=== PATIENT | female | born 1955 | race Caucasian/White ===

== ENCOUNTER 2023-12-08 10:49 | Observation (INO) ==
[2023-12-08] MEDS: NOZIN NASAL SANITIZER TP ONE (11:14)
[2023-12-08] MEDS: LR 1,000 ML IV 1,000 ML IV ONE (11:14)
[2023-12-08] MEDS: ANCEF VIAL 1 GRAM ONE (11:47)
[2023-12-08] MEDS: NS 100 ML IV 100 ML ONE (11:47)
[2023-12-08] MEDS: FENTANYL VIAL INJ 100 mcg ONE (11:59)
[2023-12-08] MEDS: VERSED ONE (11:59)
[2023-12-08] MEDS: DIPRIVAN VIAL 40 ML ONE (12:01)
[2023-12-08] MEDS: VISIPAQUE 100 ML ONE (12:17)
[2023-12-08] MEDS: HEPARIN SODIUM IN D5W 75,000 UNITS/1,500 ML BAG ONE (12:17)
[2023-12-08] MEDS: VISIPAQUE 50 ML ONE ×2 (12:17→13:58)
[2023-12-08] MEDS: MARCAINE 0.5% ONE (12:17)
[2023-12-08] MEDS: HEPARIN SODIUM INJ 5000 UNITS ONE ×2 (12:18→13:22)
[2023-12-08] MEDS: ROBINUL ONE (12:21)
[2023-12-08] MEDS: NEO-SYNEPHRINE INJ ONE (12:25)
[2023-12-08] MEDS: NS 500 ML IV 500 ML IV ONE (12:32)
[2023-12-08] MEDS: DIPRIVAN VIAL 20 ML ONE (13:38)
--- NOTE | 2023-12-08 14:32 | OR.IMMED ---
IMMEDIATE POST-OP NOTE Immediate Post-Op Note Date of surgery/procedure: 12/08/23 Pre-Op Diagnosis: Critical scheme of left leg Post-Op Diagnosis: same Procedure: aortogram, arteriogram left leg, atherectomy and Drug coated stenting of the left distal superficial femoral artery and proximal popliteal artery, atherectomy and drug coated balloon angioplasty of the proximal left superficial femoral artery and angioplasty of the left posterior tibial artery Description of Procedure: see dictation Surgeon/First Aid Officer: Tim Findings: stricture of distal left posterior tibial artery, stenosis proximal left anterior artery, normal left peroneal artery, severe distal aortic disease, diseased proximal left superficial artery, complete total occlusion of the distal left superficial femoral artery with reconstitution at the adductor canal Estimated Blood Loss: 100cc Complications: none Discharge Progress Notes: patient taken back to Same Day Surgery, will discharge home and ready. Resume usual activity tomorrow. Follow up 1 week. Resume all medications including as pirin. Begin Xarelto 2.5 milligrams BID
[2023-12-08] MEDS: NS 1,000 ML IV 0 ML ONE (15:19)
[2023-12-08] MEDS: CATAPRES TAB 0.2 MG ONE (15:25)
[2023-12-08] MEDS: NORVASC TAB 5 MG ONE (16:17)
[2023-12-08] MEDS ORDERED: COREG TAB 12.5 MG ONE (16:19)
[2023-12-08] MEDS: COREG TAB 12.5 MG PO SCH (16:30)
[2023-12-08] MEDS: PERCOCET TAB 5/325 MG PO PRN (17:05)
[2023-12-08 17:58] VITALS: BMI 24.8
[2023-12-08] MEDS: LR 1,000 ML IV 1,000 ML IV SCH (18:12)
[2023-12-08] MEDS ORDERED: LR 1,000 ML IV 1,000 ML IV ONE (18:12)
--- NOTE | 2023-12-08 23:48 | NOTE.SOAP ---
Soap Note Note for Day of Date of Exam: 12/08/23 Subjective Data Subjective Data: Patient had left leg arterial revascularization today and post op had BP> 190/105. Patient had recent CABG and pre -op was on Coreg ,amlodipine and Losartan for hypertension. Since CABG has only been on Coreg 12.5. BID for BP control. With spike in BP had bleeding from needle sticks in right groin and left foot. Admitted to CCU and given Coreg and Amlodipine with good result ( 107/60) Objective Data Pulse Rate: 55 Respiratory Rate: 21 Blood Pressure: 107/60 O2 Sat by Pulse Oximetry: 98 Objective Data: Bleeding stopped , left foot warm Assessment Assessment: HYpertension post procedure Plan Plan: bserve and probably d/c in AM
[2023-12-09 04:47] LABS: HEMOGLOBIN 11.2 g/dL (12.0-16.0); MEAN CORPUSCULAR HEMOGLOBIN 29.5 pg (27.0-34.0); MEAN CORPUSCULAR HGB CONC 34.2 g/dL (33.0-35.0); MEAN CORPUSCULAR VOLUME 86.2 fL (80.0-100.0)
[2023-12-09 04:57] LABS: ALANINE AMINOTRANSFERASE 12 Units/L (12-78); ALBUMIN 3.1 g/dL (3.4-5.0); ALKALINE PHOSPHATASE 53 Units/L (46-116); ASPARTATE AMINO TRANSFERASE 19 Units/L (15-37); BLOOD UREA NITROGEN 12 mg/dL (7-18); CALCIUM 8.7 mg/dL (8.5-10.1); CHLORIDE 106 mmol/L (98-107); COR CA(FOR HYPOALB) 9.4 mg/dL (8.5-10.1); CREATININE 0.74 mg/dL (0.55-1.02); GLUCOSE 99 mg/dL (65-99); SODIUM 143 mmol/L (136-145); TOTAL PROTEIN 6.3 g/dL (6.4-8.2); eGFR NON BLACK RACES > 60 (>60)
[2023-12-09 05:06] LABS: BASOPHILS % (AUTO) 0.2 % (0.2-1.0); EOSINOPHILS # (AUTO) 0.2 x10^3/uL (0.0-0.2); EOSINOPHILS % (AUTO) 1.9 % (0.9-2.9); HEMATOCRIT 32.6 % (36.0-47.0); LYMPHOCYTES # (AUTO) 2.5 X10^3/uL (1.3-2.9); LYMPHOCYTES % (AUTO) 27.9 % (21.0-51.0); MEAN PLATELET VOLUME 9.9 fL (7.4-11.0); MONOCYTES # (AUTO) 0.7 x10^3/uL (0.3-0.8); MONOCYTES % (AUTO) 8.1 % (0.0-13.0); NEUTROPHILS # (AUTO) 5.5 x10^3/uL (2.2-4.8); NEUTROPHILS % (AUTO) 61.9 % (42.0-75.0); PLATELET COUNT 103 X10^3/uL (150.0-450.0); RED BLOOD COUNT 3.78 X10^6/uL (3.5-5.4); RED CELL DISTRIBUTION WIDTH 17.3 % (11.6-16.5)
[2023-12-09 05:08] LABS: POTASSIUM 5.3 mmol/L (3.5-5.1)
[2023-12-09 08:07] VITALS: TEMP 97.6
[2023-12-09] MEDS: PROTONIX TAB 40 MG PO SCH (08:13)
[2023-12-09] MEDS: NORVASC TAB 10 MG PO SCH (08:13)
[2023-12-09] MEDS: ASPIRIN EC 81 MG PO SCH (08:13)
--- NOTE | 2023-12-09 10:20 | W.DIS.FURT ---
Summary of Discharge Discharge Summary of Date Date of Exam: 12/09/23 Admission Date Date of Admission: 12/08/23 Admission Diagnosis Hospital Course: 68 year old female who had peripheral re-vascularization of the left leg to include atherectomy and drug-coated balloon angioplasty of the proximal left superficial femoral artery, atherectomy and Drug coated stenting of the distal left superficial femoral and angioplasty of the left posterior tibial artery. We had planned to do this as an outpatient however blood pressure was in excess of 190 mm of mercury systolic and 105 mm of mercury diastolic. Recently she had a coronary artery bypass grafting and they stopped all the blood pressure medicines except for her Coreg. She was admitted and treated with Coreg 12.5 milligrams BID and amlodipine 10 daily and her blood pressure is within the normal limits now, most recently was 130/60 prior to discharge. Will be discharged today on her usual home l medications with the addition of the amlodipine 10 mg daily and I will see her in the office in 1 week. Vital Signs: Vital Signs (72 hours) 12/08/23 23:48 12/08/23 11:28 12/08/23 11:28 Temperature 97.5 F L Pulse Rate 55 L 104 H 104 H Pulse Rate [Bilateral Radial] Respiratory Rate 21 20 Blood Pressure 107/60 186/95 Blood Pressure [Right Arm] O2 Sat by Pulse Oximetry 98 99 Oxygen Delivery Method Room Air Oxygen Flow Rate FIO2% 12/08/23 14:25 12/08/23 14:16 12/08/23 14:36 Temperature Pulse Rate 59 L 60 58 L Pulse Rate [Bilateral Radial] Respiratory Rate 17 17 18 Blood Pressure 150/80 150/80 154/88 Blood Pressure [Right Arm] O2 Sat by Pulse Oximetry 95 Oxygen Delivery Method Room Air Oxygen Flow Rate FIO2% 12/08/23 14:30 12/08/23 14:45 12/08/23 15:01 Temperature Pulse Rate 58 L 56 L 57 L Pulse Rate [Bilateral Radial] Respiratory Rate 18 18 20 Blood Pressure 154/88 167/89 196/95 Blood Pressure [Right Arm] O2 Sat by Pulse Oximetry 95 99 Oxygen Delivery Method Room Air Room Air Oxygen Flow Rate FIO2% 12/08/23 14:55 12/08/23 15:11 12/08/23 17:05 Temperature Pulse Rate 57 L 50 L Pulse Rate [Bilateral Radial] Respiratory Rate 18 18 18 Blood Pressure 196/95 193/97 Blood Pressure [Right Arm] O2 Sat by Pulse Oximetry 97 Oxygen Delivery Method Room Air Oxygen Flow Rate FIO2% 12/08/23 15:05 12/08/23 15:15 12/08/23 15:25 Temperature Pulse Rate 54 L 50 L 53 L Pulse Rate [Bilateral Radial] Respiratory Rate 18 18 18 Blood Pressure 193/97 202/97 201/104 Blood Pressure [Right Arm] O2 Sat by Pulse Oximetry 99 100 100 Oxygen Delivery Method Room Air Room Air Room Air Oxygen Flow Rate FIO2% 12/08/23 15:35 12/08/23 15:45 12/08/23 15:55 Temperature Pulse Rate 53 L 57 L 56 L Pulse Rate [Bilateral Radial] Respiratory Rate 18 18 18 Blood Pressure 169/93 191/108 210/113 Blood Pressure [Right Arm] O2 Sat by Pulse Oximetry 100 100 99 Oxygen Delivery Method Room Air Room Air Room Air Oxygen Flow Rate FIO2% 12/08/23 16:05 12/08/23 16:15 12/08/23 16:25 Temperature Pulse Rate 53 L 56 L 55 L Pulse Rate [Bilateral Radial] Respiratory Rate 18 18 18 Blood Pressure 202/113 185/108 185/104 Blood Pressure [Right Arm] O2 Sat by Pulse Oximetry 99 99 99 Oxygen Delivery Method Room Air Room Air Room Air Oxygen Flow Rate FIO2% 12/08/23 16:35 12/08/23 16:45 12/08/23 16:55 Temperature Pulse Rate 54 L 59 L 58 L Pulse Rate [Bilateral Radial] Respiratory Rate 18 18 18 Blood Pressure 150/88 167/95 167/92 Blood Pressure [Right Arm] O2 Sat by Pulse Oximetry 99 99 99 Oxygen Delivery Method Room Air Room Air Room Air Oxygen Flow Rate FIO2% 12/08/23 17:05 12/08/23 17:20 12/08/23 17:20 Temperature 97.6 F Pulse Rate 58 L Pulse Rate [Bilateral Radial] 55 L Respiratory Rate 18 15 Blood Pressure 148/89 Blood Pressure [Right Arm] 154/76 O2 Sat by Pulse Oximetry 99 97 Oxygen Delivery Method Room Air Room Air Room Air Oxygen Flow Rate FIO2% 12/08/23 17:21 12/08/23 17:22 12/08/23 17:22 Temperature Pulse Rate 56 L 55 L Pulse Rate [Bilateral Radial] Respiratory Rate 17 15 Blood Pressure 154/76 Blood Pressure [Right Arm] O2 Sat by Pulse Oximetry Oxygen Delivery Method Oxygen Flow Rate FIO2% 12/08/23 17:30 12/08/23 17:45 12/08/23 18:11 Temperature Pulse Rate 58 L 59 L Pulse Rate [Bilateral Radial] Respiratory Rate 14 12 Blood Pressure 90/62 Blood Pressure [Right Arm] O2 Sat by Pulse Oximetry 95 93 L Oxygen Delivery Method Oxygen Flow Rate FIO2% 12/08/23 18:00 12/08/23 18:05 12/08/23 18:06 Temperature Pulse Rate 60 57 L Pulse Rate [Bilateral Radial] Respiratory Rate 29 H 19 Blood Pressure 85/56 Blood Pressure [Right Arm] O2 Sat by Pulse Oximetry 97 91 L Oxygen Delivery Method Oxygen Flow Rate FIO2% 12/08/23 18:08 12/08/23 18:08 12/08/23 18:13 Temperature Pulse Rate 57 L Pulse Rate [Bilateral Radial] Respiratory Rate 17 Blood Pressure 78/52 91/54 Blood Pressure [Right Arm] O2 Sat by Pulse Oximetry 94 L Oxygen Delivery Method Oxygen Flow Rate FIO2% 12/08/23 18:13 12/08/23 18:15 12/08/23 18:15 Temperature Pulse Rate 57 L 54 L Pulse Rate [Bilateral Radial] Respiratory Rate 16 13 Blood Pressure 95/57 Blood Pressure [Right Arm] O2 Sat by Pulse Oximetry 93 L 96 Oxygen Delivery Method Oxygen Flow Rate FIO2% 12/08/23 18:18 12/08/23 18:18 12/08/23 18:32 Temperature Pulse Rate 55 L Pulse Rate [Bilateral Radial] Respiratory Rate 16 Blood Pressure 100/63 Blood Pressure [Right Arm] O2 Sat by Pulse Oximetry 94 L Oxygen Delivery Method Nasal Cannula Oxygen Flow Rate 2 FIO2% 28 12/08/23 18:05 12/08/23 19:00 12/08/23 19:00 Temperature Pulse Rate 58 L Pulse Rate [Bilateral Radial] Respiratory Rate 18 21 Blood Pressure 86/53 Blood Pressure [Right Arm] O2 Sat by Pulse Oximetry 96 Oxygen Delivery Method Oxygen Flow Rate FIO2% 12/08/23 19:00 12/08/23 20:00 12/08/23 20:00 Temperature 98.1 F Pulse Rate 51 L Pulse Rate [Bilateral Radial] Respiratory Rate 19 Blood Pressure 104/57 Blood Pressure [Right Arm] O2 Sat by Pulse Oximetry 98 Oxygen Delivery Method Room Air Oxygen Flow Rate FIO2% 12/08/23 20:15 12/08/23 20:15 12/08/23 21:00 Temperature Pulse Rate 55 L Pulse Rate [Bilateral Radial] Respiratory Rate 17 Blood Pressure 103/64 96/66 Blood Pressure [Right Arm] O2 Sat by Pulse Oximetry 97 Oxygen Delivery Method Oxygen Flow Rate FIO2% 12/08/23 21:00 12/08/23 21:27 12/08/23 22:00 Temperature Pulse Rate 59 L 58 L Pulse Rate [Bilateral Radial] Respiratory Rate 18 20 Blood Pressure 105/62 Blood Pressure [Right Arm] O2 Sat by Pulse Oximetry 98 98 Oxygen Delivery Method Nasal Cannula Oxygen Flow Rate 2 FIO2% 28 12/08/23 22:00 12/08/23 22:00 12/08/23 22:25 Temperature Pulse Rate 55 L Pulse Rate [Bilateral Radial] Respiratory Rate 24 21 Blood Pressure 105/62 Blood Pressure [Right Arm] O2 Sat by Pulse Oximetry 98 Oxygen Delivery Method Oxygen Flow Rate FIO2% 12/08/23 22:23 12/08/23 22:23 12/08/23 23:00 Temperature Pulse Rate 58 L Pulse Rate [Bilateral Radial] Respiratory Rate 33 H Blood Pressure 126/71 107/60 Blood Pressure [Right Arm] O2 Sat by Pulse Oximetry 100 Oxygen Delivery Method Oxygen Flow Rate FIO2% 12/08/23 23:00 12/09/23 00:00 12/09/23 00:00 Temperature 97.7 F Pulse Rate 55 L 58 L Pulse Rate [Bilateral Radial] Respiratory Rate 21 22 Blood Pressure 102/56 Blood Pressure [Right Arm] O2 Sat by Pulse Oximetry 98 98 Oxygen Delivery Method Oxygen Flow Rate FIO2% 12/08/23 23:25 12/09/23 01:00 12/09/23 01:00 Temperature Pulse Rate 53 L Pulse Rate [Bilateral Radial] Respiratory Rate 19 18 Blood Pressure 106/56 Blood Pressure [Right Arm] O2 Sat by Pulse Oximetry 97 Oxygen Delivery Method Oxygen Flow Rate FIO2% 12/09/23 02:00 12/09/23 02:00 12/09/23 03:00 Temperature Pulse Rate 55 L 54 L Pulse Rate [Bilateral Radial] Respiratory Rate 16 17 Blood Pressure 111/56 Blood Pressure [Right Arm] O2 Sat by Pulse Oximetry 96 96 Oxygen Delivery Method Oxygen Flow Rate FIO2% 12/09/23 03:00 12/09/23 04:00 12/09/23 04:00 Temperature 98.0 F Pulse Rate 54 L Pulse Rate [Bilateral Radial] Respiratory Rate 18 Blood Pressure 99/58 109/57 Blood Pressure [Right Arm] O2 Sat by Pulse Oximetry 98 Oxygen Delivery Method Oxygen Flow Rate FIO2% 12/09/23 05:01 12/09/23 05:01 12/09/23 06:00 Temperature Pulse Rate 53 L 54 L Pulse Rate [Bilateral Radial] Respiratory Rate 19 20 Blood Pressure 129/59 Blood Pressure [Right Arm] O2 Sat by Pulse Oximetry 99 98 Oxygen Delivery Method Oxygen Flow Rate FIO2% 12/09/23 06:00 12/09/23 07:00 12/09/23 07:00 Temperature Pulse Rate 57 L Pulse Rate [Bilateral Radial] Respiratory Rate 19 Blood Pressure 123/61 119/60 Blood Pressure [Right Arm] O2 Sat by Pulse Oximetry 98 Oxygen Delivery Method Oxygen Flow Rate FIO2% 12/09/23 08:00 12/09/23 08:00 12/09/23 07:00 Temperature 97.6 F Pulse Rate 56 L Pulse Rate [Bilateral Radial] Respiratory Rate 15 Blood Pressure 97/61 Blood Pressure [Right Arm] O2 Sat by Pulse Oximetry 99 Oxygen Delivery Method Room Air Oxygen Flow Rate FIO2% 12/09/23 09:01 12/09/23 09:02 12/09/23 09:02 Temperature Pulse Rate 59 L 58 L Pulse Rate [Bilateral Radial] Respiratory Rate 22 17 Blood Pressure 132/64 Blood Pressure [Right Arm] O2 Sat by Pulse Oximetry 98 98 Oxygen Delivery Method Oxygen Flow Rate FIO2% 12/09/23 09:29 Temperature Pulse Rate Pulse Rate [Bilateral Radial] Respiratory Rate 17 Blood Pressure Blood Pressure [Right Arm] O2 Sat by Pulse Oximetry Oxygen Delivery Method Oxygen Flow Rate FIO2% Labs: Laboratory Last Values WBC 9.0 X10^3/uL (3.6-10.0) 12/09/23 04:12 RBC 3.78 X10^6/uL (3.5-5.4) 12/09/23 04:12 Hgb 11.2 g/dL (12.0-16.0) L 12/09/23 04:12 Hct 32.6 % (36.0-47.0) L 12/09/23 04:12 MCV 86.2 fL (80.0-100.0) 12/09/23 04:12 MCH 29.5 pg (27.0-34.0) 12/09/23 04:12 MCHC 34.2 g/dL (33.0-35.0) 12/09/23 04:12 RDW 17.3 % (11.6-16.5) H 12/09/23 04:12 Plt Count 103 X10^3/uL (150.0-450.0) L 12/09/23 04:12 MPV 9.9 fL (7.4-11.0) 12/09/23 04:12 Neut % (Auto) 61.9 % (42.0-75.0) 12/09/23 04:12 Lymph % (Auto) 27.9 % (21.0-51.0) 12/09/23 04:12 [place] % (Auto) 8.1 % (0.0-13.0) 12/09/23 04:12 Eos % (Auto) 1.9 % (0.9-2.9) 12/09/23 04:12 Baso % (Auto) 0.2 % (0.2-1.0) 12/09/23 04:12 Neut # (Auto) 5.5 x10^3/uL (2.2-4.8) H 12/09/23 04:12 Lymph # (Auto) 2.5 X10^3/uL (1.3-2.9) 12/09/23 04:12 [place] # (Auto) 0.7 x10^3/uL (0.3-0.8) 12/09/23 04:12 Eos # (Auto) 0.2 x10^3/uL (0.0-0.2) 12/09/23 04:12 Baso # (Auto) 0.0 X10^3/uL (0.0-0.1) 12/09/23 04:12 Absolute Nucleated RBC 0.0 /100WBC 12/09/23 04:12 Sodium 143 mmol/L (136-145) 12/09/23 04:12 Corrected Sodium TNP 12/09/23 04:12 Potassium 5.3 mmol/L (3.5-5.1) H 12/09/23 04:12 Chloride 106 mmol/L (98-107) 12/09/23 04:12 Carbon Dioxide 31.0 mmol/L (21-32) 12/09/23 04:12 BUN 12 mg/dL (7-18) 12/09/23 04:12 Creatinine 0.74 mg/dL (0.55-1.02) 12/09/23 04:12 Est GFR (MDRD) Af Amer > 60 (>60) 12/09/23 04:12 Est GFR (MDRD) Non-Af > 60 (>60) 12/09/23 04:12 Glucose 99 mg/dL (65-99) 12/09/23 04:12 Calcium 8.7 mg/dL (8.5-10.1) 12/09/23 04:12 Corrected Calcium 9.4 mg/dL (8.5-10.1) 12/09/23 04:12 Total Bilirubin 0.30 mg/dL (0.2-1.0) 12/09/23 04:12 AST 19 Units/L (15-37) 12/09/23 04:12 ALT 12 Units/L (12-78) 12/09/23 04:12 Alkaline Phosphatase 53 Units/L (46-116) 12/09/23 04:12 Total Protein 6.3 g/dL (6.4-8.2) L 12/09/23 04:12 Albumin 3.1 g/dL (3.4-5.0) L 12/09/23 04:12 Globulin 3.2 g/dL (2.5-4.5) 12/09/23 04:12 Albumin/Globulin Ratio 1.0 Ratio (1.1-2.1) L 12/09/23 04:12 Reason For Visit: AORTOGRAM Discharge Date Discharge Date: 12/09/23 Discharge Diagnosis Plan of Treatment: Continue with present treatment and follow up plan. Pt is to keep follow up appointment as instructed and take medications as ordered. Discharge Medications Discharge Medications: celecoxib [From Celebrex] Allergy (Verified 12/08/23 11:34) CONTINUE taking the following medications aspirin 81 mg tablet,delayed release 81 mg PO DAILY 12/08/23 [History] carvedilol 12.5 mg tablet 12.5 mg PO BID 12/08/23 [History] esomeprazole magnesium 20 mg capsule,delayed release 20 mg PO DAILY 12/08/23 [History] rosuvastatin 40 mg tablet 40 mg PO HS 12/08/23 [History] valacyclovir 1 gram tablet 1,000 mg PO DAILY 12/08/23 [History] amlodipine 10 mg po daily Discharge Disposition Assessment: as above , see hospital course Discharge Plan Discharge Plan Hospital Course: 68 year old female who had peripheral re-vascularization of the left leg to include atherectomy and drug-coated balloon angioplasty of the proximal left superficial femoral artery, atherectomy and Drug coated stenting of the distal left superficial femoral and angioplasty of the left posterior tibial a rtery. We had planned to do this as an outpatient however blood pressure was in excess of 190 mm of mercury systolic and 105 mm of mercury diastolic. Recently she had a coronary artery bypass grafting and they stopped all the blood pressure medicines except for her Coreg. She was admitted and treated with Coreg 12.5 milligrams BID and amlodipine 10 daily and her blood pressure is within the normal limits now, most recently was 130/60 prior to discharge. Will be discharged today on her usual home l medications with the addition of the amlodipine 10 mg daily and I will see her in the office in 1 week. Patient Disposition: 01 HOME, SELF-CARE Condition: Stable Health Concerns: Post Hospitalization: new medications and changes needed to prevent readmission or further decline. Pt educated and given instructions on all concerns. Care Plan Goals: resume walking, will need right leg arterial intervention in the near future Plan of Treatment: Continue with present treatment and follow up plan. Pt is to keep follow up appointment as instructed and take medications as ordered. Assessment: as above , see hospital course Prescription drug monitoring program results: PDMP was not reviewed Prescriptions: New amlodipine 10 mg tablet 10 mg PO QDAY Qty: 30 6RF Continued carvedilol 12.5 mg Tablet 12.5 mg PO BID Rx Instructions: must administer with a meal/food valacyclovir 1 gram Tablet 1,000 mg PO DAILY aspirin 81 mg Tablet,Delayed Release (Dr/Ec) 81 mg PO DAILY esomeprazole magnesium 20 mg Capsule,Delayed Release(Dr/Ec) 20 mg PO DAILY rosuvastatin 40 mg Tablet 40 mg PO HS Orders to Discharge Patient Discharge Orders: Discharge (Routine); Ordered 12/09/23 Ordered By: Herbert Dumont Follow ups/Referrals Follow ups/Referrals: ISAAC GOMES [Primary Care Provider] - PCP Instructions Instructions: Endovascular Therapy for Peripheral Vascular Disease, Care After, Monitored Anesthesia Care, Care After Activity Restrictions/Additional Instructions: POST OPERATIVE INSTRUCTIONS: (1) A RESPONSIBLE ADULT SHOULD REMAIN WITH YOU TODAY, YOU SHOULD BE ASSISTED TO THE BATHROOM FOR 6-8 HOURS. REST QUIETLY THE REMAINDER OF THE DAY. (2) DEEP BREATHING AND COUGHING EXERCISES FOR THE NEXT 6-8 HOURS. (3)SMOKE ONLY IF SOMEONE IS WITH YOU FOR THE NEXT 12 HOURS. (4) DIET TOLERATED, DRINK PLENTY OF WATER. (5) DO NOT DRIVE YOUR AUTOMOBILE OR OPERATE MACHINERY FOR 12-18 HOURS AFTER RECEIVING A GENERAL ANESTHETIC OR WHILE TAKING NARCOTIC PAIN MEDICATION. (6) SOME ANESTHETIC AGENTS AND MEDICATION TAKEN FOR PAIN MAY CAUSE NAUSEA. IF NAUSEA PERSISTS FOR SEVERAL HOURS AT HOME, CALL YOUR DOCTOR. (7) LIGHT ACTIVITIES. (8) OBSERVE OPERATIVE AREA FOR SIGNS OF INFECTION: REDNESS, SWELLING, FOUL ODOR, DRAINAGE, AND NOTIFY FOR ANY CONCERNS OR FEVER OVER 101.0. (9) KEEP OPERATIVE AREA CLEAN AND DRY. YOU MAY REMOVE DRESSING AFTER 24 HOURS AND SHOWER/BATH WITH ANTIBACTERIAL SOAP. (10) RESUME ALL PREVIOUS MEDICATIONS PRESCRIBED BY YOUR DOCTOR. (11) TAKE PAIN MEDICATIONS PRESCRIBED. (12) OBSERVE AFFECTED AREA FOR CIRCULATION, CHANGE OF COLOR, NUMBNESS OR TINGLING, COLDNESS, INCREASED PAIN, OR BLEEDING. FOR ANY COMPLICATIONS PLEASE CALL DR. DUOMNT @ PRIOR TO GOING TO EMERGENCY DEPARTMENT. (13) RESUME USUAL ACTIVITY. (14) RESUME ALL HOME MEDICATIONS INCLUDING ASPIRIN. (15) BEGIN XARELTO PRESCRIBED. FOLLOW UP WITH DR. DUMONT ON December AT 1130. Stand Alone Forms: Post Hospital Follow Up Care
[2023-12-09 11:07] VITALS: BP 98/61; PULSE 57; RESP 24; O2SAT 96
[2023-12-09] MEDS ORDERED: CRESTOR TAB 10 MG PO SCH (21:00)
--- NOTE | 2023-12-14 10:36 | DR.OPNOTE ---
OP NOTE Pre-Op Diagnosis: critical ischemia left leg Procedure: PROCEDURE: DIAGNOSTIC AORTOGRAM, DIAGNOSTIC ARTERIOGRAM LEFT LEG, ANGIOPLASTY LEFT POSTERIOR TIBIAL ARTERY, ATHERECTOMY AND DRUG COATED STENTING LEFT DISTAL SUPERFICIAL FEMORAQL ARTERY AND PROXIMAL POPLITEAL ARTERY , ATHWRECTOMY AND DRUG COATED BALLOON ANGIOPLASTY LEFT PROXIMAL SUPEREFICIAL FEMORAL ARTERY NARRATIVE : The patient was taken to the operative suite and placed in the supine position. The right groin and entire left leg were prepped and draped in sterile fashion. The patient was given intravenous sedation supervised by myself. Time out for the procedure obtained. Ultrasound used to identify the right femoral artery and the skin overlying it infiltrated with 0.5% Marcaine. Ultrasound then used to guide puncture of the right femoral artery and a 0.012 inch guide wire was placed. Incision made over the guide wire at the skin edge with a # 11 knife blade and a micro sheath placed over the guide wire into the right femoral artery The small guidewire exchanged for a 0.035 inch Advantage glide wire and the micro sheath exchanged for a 5 Fr vascular sheath. Patient given 5000 units of intravenous heparin. Omni catheter was placed over the guide wire into the aorta and diagnostic aortogram carried out with the power injector showing normal aorta and iliac arteries . Omni catheter was used to steer the guide wire down the left common iliac artery to the distal left external iliac artery . Omni catheter was exchanged for a [place] catheter and sequential arteriograms carried out of the left lower extremity showing severely diseased proximal left superficial femoral artery , complete occlusion of the distal left superficial femoral and popliteal arteries, complete occlusion distal left posterior tibial artery , normal left peroneal artery and stenosis left proximal anteriot tibial artery. The 5 Fr sheath in the right groin then exchanged for a 7 Fr Catapult sheath which was parked in the distal left external iliac artery. [place] catheter and the guide wire were used to traverse the arteries of the left leg ultimately ending in the left peroneal artery. This was selective catheterization. 0.035 inch wire removed and exchanged for a 0.014 inch wire. Over this wire we placed the [place] atherectomy device and performed atherectomy of the left posterior tibial artery and all of the left superficial femoral artery . At this point we performed angioplasty balloon dilatation of the left posterior tibial artery area of concern with a [place] [id number] balloon . There were others area of concern on the follow up arteriogram and then we dilated the entire left posterior tibial artery with a [place] 2.5mmx 220 mm angioplasty balloon. The area of occlusion of the left superficial femoral artey was pre- dialted with a [place] 4.0 mm balloon and then a 6 mmx 150 mm Claire stent placed in the distal left superficial femoral and proximal popliteal arteries . Then the proximal superficial femoral artery was balloon dialted with a [employer] [place] drug coated balloon measuring 6mmx 200 mm , inflating for three minutes and then used this balloon to pos dilate the previously placed stent . At the completion of this a follow up arteriogram showed excellent result . All wires and devices removed. The 7 Fr sheath was pulled back into the aorta and a 0.035 inch wire placed. The destination sheath exchanged for an Angioseal device used to close the puncture of the right femoral artery. Dressing applied to the left groin. The patient taken to Same Day Surgery in good condition. Disposition/Condition: Pt. tolerated procedure without difficulty. Extubated in the OR and taken to PACU in stable condition.
== END 2023-12-09 11:15 | disposition home or self-care (01) ==
LOC: SURG1 10:49 → ICU 10:49
PROVIDERS: ADMIT Surgery; ATTEND Surgery
DX: I70.222 Atherosclerosis of native arteries of extremities with rest pain, left leg; I10 Essential (primary) hypertension; I48.11 Longstanding persistent atrial fibrillation; K21.9 Gastro-esophageal reflux disease without esophagitis; B19.20 Unspecified viral hepatitis C without hepatic coma; I25.10 Atherosclerotic heart disease of native coronary artery without angina pectoris